=== PATIENT | male | born 1995 | race Two or more races ===

== ENCOUNTER 2017-09-08 13:19 | Emergency (ER) | payer OTHER ==
[~2017-09-08 13:19] MED LIST: VALA100062 PO
[2017-09-08] MEDS ORDERED: NS(*) 0.9% 1000 ML BAG 1,000 ML IV ONE ×2 (13:24→13:25)
--- NOTE | 2017-09-08 13:24 | ER Report ---
History and Physical Time Seen By MD: 13:23 HPI/ROS CHIEF COMPLAINT: Dizziness and low blood pressure HISTORY OF PRESENT ILLNESS: Patient is a 21-year-old male who presents to the emergency department with near syncopal symptoms. States he is not eaten or drinking anything all day today and was doing some "heavy lifting". He says that he was standing and felt dizzy as if he was going to pass out. For this reason he presents to the emergency department for further evaluation. Patient denies any chest pain or pressure either prior to during or after the event occurred. He denies any head injury. He denies fevers or chills. Patient denies nausea or vomiting denies abdominal pain. REVIEW OF SYSTEMS: Respiratory: No cough, no dyspnea. Cardiovascular: No chest pain, no palpitations. Gastrointestinal: No vomiting, no abdominal pain. Musculoskeletal: No back pain. Allergies: Coded Allergies: No Known Drug Allergies (Unverified , 09/08/17) Home Meds Discontinued Scripts Valacyclovir Hcl (VALTREX) 1,000 Mg Tablet, 1000 MG PO BID, #10 TAB Prov:EMELI AHUJA REGISTERED NURSE [employer]IFE 02/22/17 Past Medical/Surgical History Noncontributory Hx Substance Use Disorder: No Hx Alcohol Use: No Constitutional Vital Sign - Last 24 Hours 09/08/17 09/08/17 09/08/17 09/08/17 13:20 13:23 13:30 13:34 Temp 98.5 Pulse 91 104 Resp 16 B/P (MAP) 123/71 123/71 (88) 111/78 (89) Pulse Ox 91 93 O2 Delivery Room Air 09/08/17 09/08/17 09/08/17 09/08/17 13:37 13:37 13:38 13:45 Pulse 84 94 98 B/P (MAP) 111/78 (89) 106/74 (85) 102/78 (86) 123/82 (96) 106/74 (85) 102/78 (86) 09/08/17 09/08/17 09/08/17 09/08/17 13:49 14:00 14:04 14:09 Pulse 92 93 90 B/P (MAP) 119/84 (96) Pulse Ox 95 99 96 09/08/17 09/08/17 09/08/17 09/08/17 14:15 14:19 14:24 14:28 Pulse 85 94 B/P (MAP) 120/77 (91) 117/83 (94) Pulse Ox 94 97 Physical Exam General Appearance: The patient is alert, has no immediate need for airway protection and no signs of toxicity. Eyes: Pupils equal and round no pallor or injection. ENT, Mouth: Mucous membranes are moist. Respiratory: There are no retractions, lungs are clear to auscultation. Cardiovascular: Regular rate and rhythm. Gastrointestinal: Abdomen is soft and non tender, no masses, bowel sounds normal. Neurological: GCS is 15, prostatic surgery normal Skin: Warm and dry, no rashes. Medical Decision Making Data Points Result Diagram: 09/08/17 0000 09/08/17 1324 Laboratory Hematology Test 09/08/17 00:00 09/08/17 13:24 09/08/17 13:42 Red Blood Count 6.88 M/uL (4.00-5.60) Mean Corpuscular Volume 66.8 fL (80.0-96.0) Mean Corpuscular Hemoglobin 21.6 pg (26.0-33.0) Mean Corpuscular Hemoglobin Concent 32.4 g/dL (32.0-36.0) Red Cell Distribution Width 13.9 % (11.5-14.5) Mean Platelet Volume 8.0 fL (7.2-11.1) Neutrophils (%) (Auto) 40.8 % (39.4-72.5) Lymphocytes (%) (Auto) 49.1 % (17.6-49.6) Monocytes (%) (Auto) 9.5 % (4.1-12.4) Eosinophils (%) (Auto) 0.3 % (0.4-6.7) Basophils (%) (Auto) 0.3 % (0.3-1.4) Nucleated RBC Relative Count (auto) 0.1 /100WBC Neutrophils # (Auto) 1.9 K/uL (2.0-7.4) Lymphocytes # (Auto) 2.3 K/uL (1.3-3.6) Monocytes # (Auto) 0.4 K/uL (0.3-1.0) Eosinophils # (Auto) 0.0 K/uL (0.0-0.5) Basophils # (Auto) 0.0 K/uL (0.0-0.1) Nucleated RBC Absolute Count (auto) 0.00 K/uL Peripheral Blood Smear Yes Y/N Sodium Level 142 mmol/L (137-145) Potassium Level 4.0 mmol/L (3.5-5.0) Chloride Level 101 mmol/L (98-107) Carbon Dioxide Level 23 mmol/L (22-30) Blood Urea Nitrogen 15 mg/dl (9-21) Creatinine 1.00 mg/dl (0.66-1.25) Glomerular Filtration Rate Calc > 60.0 Random Glucose 98 mg/dl (75-110) Calcium Level 10.1 mg/dl (8.4-10.2) Magnesium Level 2.2 mg/dl (1.7-2.2) Total Bilirubin 0.7 mg/dl (0.2-1.3) Aspartate Amino Transf (AST/SGOT) 29 U/L (0-35) Alanine Aminotransferase (ALT/SGPT) 56 U/L (0-56) Alkaline Phosphatase 61 U/L (0-126) Total Protein 7.8 gm/dl (6.3-8.2) Albumin 4.5 g/dl (3.5-5.0) Urine Color Yellow Urine Clarity Slightly-cloudy Urine pH 6.0 pH (4.8-9.5) Urine Specific [place] 1.025 Urine Protein 30 mg/dL (NEGATIVE) Urine Glucose (UA) Negative mg/dL (NEGATIVE) Urine Ketones Trace mg/dL (NEGATIVE) Urine Blood Negative (NEGATIVE) Urine Nitrite Negative (NEGATIVE) Urine Bilirubin Negative (NEGATIVE) Urine Urobilinogen Negative mg/dL (0.2-1.9) Urine Leukocyte Esterase Negative (NEGATIVE) Urine RBC 1 /HPF (0-2/HPF) Urine WBC 1 /HPF (0-5/HPF) Urine Squamous Epithelial Cells None /LPF (</=FEW) Urine Bacteria Negative /HPF (NONE-FEW) Urine Mucus Few /HPF (NONE-FEW) Chemistry Test 09/08/17 00:00 09/08/17 13:24 09/08/17 13:42 White Blood Count 4.6 k/uL (4.5-11.0) Red Blood Count 6.88 M/uL (4.00-5.60) Hemoglobin 14.9 g/dL (14.0-18.0) Hematocrit 46.0 % (42.0-52.0) Mean Corpuscular Volume 66.8 fL (80.0-96.0) Mean Corpuscular Hemoglobin 21.6 pg (26.0-33.0) Mean Corpuscular Hemoglobin Concent 32.4 g/dL (32.0-36.0) Red Cell Distribution Width 13.9 % (11.5-14.5) Platelet Count 355 K/uL (150-450) Mean Platelet Volume 8.0 fL (7.2-11.1) Neutrophils (%) (Auto) 40.8 % (39.4-72.5) Lymphocytes (%) (Auto) 49.1 % (17.6-49.6) Monocytes (%) (Auto) 9.5 % (4.1-12.4) Eosinophils (%) (Auto) 0.3 % (0.4-6.7) Basophils (%) (Auto) 0.3 % (0.3-1.4) Nucleated RBC Relative Count (auto) 0.1 /100WBC Neutrophils # (Auto) 1.9 K/uL (2.0-7.4) Lymphocytes # (Auto) 2.3 K/uL (1.3-3.6) Monocytes # (Auto) 0.4 K/uL (0.3-1.0) Eosinophils # (Auto) 0.0 K/uL (0.0-0.5) Basophils # (Auto) 0.0 K/uL (0.0-0.1) Nucleated RBC Absolute Count (auto) 0.00 K/uL Peripheral Blood Smear Yes Y/N Glomerular Filtration Rate Calc > 60.0 Calcium Level 10.1 mg/dl (8.4-10.2) Magnesium Level 2.2 mg/dl (1.7-2.2) Total Bilirubin 0.7 mg/dl (0.2-1.3) Aspartate Amino Transf (AST/SGOT) 29 U/L (0-35) Alanine Aminotransferase (ALT/SGPT) 56 U/L (0-56) Alkaline Phosphatase 61 U/L (0-126) Total Protein 7.8 gm/dl (6.3-8.2) Albumin 4.5 g/dl (3.5-5.0) Urine Color Yellow Urine Clarity Slightly-cloudy Urine pH 6.0 pH (4.8-9.5) Urine Specific [place] 1.025 Urine Protein 30 mg/dL (NEGATIVE) Urine Glucose (UA) Negative mg/dL (NEGATIVE) Urine Ketones Trace mg/dL (NEGATIVE) Urine Blood Negative (NEGATIVE) Urine Nitrite Negative (NEGATIVE) Urine Bilirubin Negative (NEGATIVE) Urine Urobilinogen Negative mg/dL (0.2-1.9) Urine Leukocyte Esterase Negative (NEGATIVE) Urine RBC 1 /HPF (0-2/HPF) Urine WBC 1 /HPF (0-5/HPF) Urine Squamous Epithelial Cells None /LPF (</=FEW) Urine Bacteria Negative /HPF (NONE-FEW) Urine Mucus Few /HPF (NONE-FEW) Urinalysis Test 09/08/17 13:42 Urine Color Yellow Urine Clarity Slightly-cloudy Urine pH 6.0 pH (4.8-9.5) Urine Specific [place] 1.025 Urine Protein 30 mg/dL (NEGATIVE) Urine Glucose (UA) Negative mg/dL (NEGATIVE) Urine Ketones Trace mg/dL (NEGATIVE) Urine Blood Negative (NEGATIVE) Urine Nitrite Negative (NEGATIVE) Urine Bilirubin Negative (NEGATIVE) Urine Urobilinogen Negative mg/dL (0.2-1.9) Urine Leukocyte Esterase Negative (NEGATIVE) Urine RBC 1 /HPF (0-2/HPF) Urine WBC 1 /HPF (0-5/HPF) Urine Squamous Epithelial Cells None /LPF (</=FEW) Urine Bacteria Negative /HPF (NONE-FEW) Urine Mucus Few /HPF (NONE-FEW) EKG/Imaging Monitor Interpretation: Normal Sinus Rhythm Imaging EKG shows normal sinus rhythm with ventricular rate of 72 bpm ED Course/Re-evaluation Clinical Indication for ER IV: Hydration, IV Access ED Course 09/08/2017 1:58:20 pm when this time will be to check basic electrolytes we will give IV fluids I will also check EKG. Decision to Disposition Date: September 08, 2017 Decision to Disposition Time: 14:16 Depart Departure Latest Vital Signs Vital Signs Date Time Temp Pulse Resp B/P (MAP) Pulse Ox O2 Delivery O2 Flow Rate FiO2 09/08/17 14:28 117/83 (94) 09/08/17 14:24 94 97 09/08/17 13:20 98.5 16 Room Air Impression: Primary Impression: Near syncope Condition: Improved Disposition: HOME OR SELF-CARE New Scripts No Active Prescriptions or Reported Meds Departure Forms: ER Transition Record, Medications Reconciliation, Off Work/ School Form, School or Work Release?: School Number of days to be released: 1 Patient Portal Information Patient Instructions: Near Syncope (ED) MAX BARRY MD September 08, 2017 13:24
[2017-09-08 13:46] LABS: PLATELET COUNT, AUTOMATED 355 K/uL (150-450)
--- NOTE | 2017-09-08 14:08 | EKG ---
FACILITY: [facility] - [place] PATIENT NAME: HEATHER GATES : [id number] MR: [id number]: [id number] EXAM DATE: ORDERING PHYSICIAN: MAX BARRY TECHNOLOGIST: AIDAN Becker Reason : DIZZY Blood Pressure : / mmHG Vent. Rate : 072 BPM Atrial Rate : 072 BPM P-R Int : 176 ms QRS Dur : 094 ms QT Int : 362 ms P-R-T Axes : 046 048 014 degrees QTc Int : 396 ms Normal sinus rhythm with sinus arrhythmia Normal ECG No previous ECGs available Confirmed by CAROL FISCHER ([id number] on 09/08/2017 4:17:32 PM Referred By: JUDIE Confirmed By:CAROL FISCHER
[2017-09-08 14:28] VITALS: BP 117/83
== END 2017-09-08 14:24 | disposition home or self-care (01) ==
LOC: ER 13:21
DX: R55 Syncope and collapse (principal)
CPT/HCPCS: 81001; 83735; 85025; 93005; 96360; 99284; J7030; 82040; 82247; 82310; 82374; 82435; 82565; 82947; 84075; 84132; 84155; 84295; 84450; 84460; 84520